=== PATIENT | male | born 1965 | race Hispanic/Latino ===

== ENCOUNTER → 2017-10-08 | Outpatient (CLI) | payer OTHER ==
[~2017-10-08] MED LIST: AMLODIPINE BESYL5 MG PO; BENADRYL; CIPRO500 MG PO; DEXAMETHASONE2 MG PO; FLOMAX0.4 MG PO; GLIMEPIRIDE2 MG PO; LEVAQUIN500 MG PO; LEVOFLOXACIN500 MG PO; METFORMIN HCL500 MG PO; NORCO 7.5-3251 EACH PO; VASOTEC10 MG PO; ZYRTEC
--- NOTE | 2017-10-09 09:11 | Diagnostic Imaging Report ---
History: Low back pain Comparison studies: CT lumbar spine 05/18/2017 Technique: Sagittal, coronal and axial T2 , sagittal T1 and IR, axial spin density oblique. Intravenous contrast: None Findings: Number of lumbar vertebral bodies:5 Alignment: Straightening of the normal lordosis.No scoliosis. Soft tissues: No T2 hyperintense inflammatory changes. Paraspinal muscles: No signal abnormalities. No atrophy. Lower thoracic cord:Normal in signal and morphology. The tip of the conus is at L1 inferior end. Cauda equina: Elongated lipoma of the filum terminale extending from L2 mid level to the sacrum. Vertebrae: Normal in height and signal intensity. No compression fractures, infection or neoplasm. Degenerative changes: L1-L2: Disc degeneration with loss of T2 signal. Patent canal and foramina. L2-L3: No abnormalities. L3-L4: Disc degeneration with loss of T2 signal. Mild diffuse disc bulge, mild facet hypertrophy and epidural lipomatosis results in moderate effacement of the thecal sac and mild bony canal stenosis. Patent foramina. L4-L5: Disc degeneration with loss of T2 signal mild diffuse disc bulge, mild facet hypertrophy, ligamentum flavum thickening thickening and epidural lipomatosis results in mild canal stenosis and mild bilateral foraminal narrowing. L5-S1: Asymmetric right disc bulge, mild facet hypertrophy and epidural lipomatosis results in mild canal stenosis, moderate right and mild left foraminal narrowing. Trace of fluid at the bilateral facet joints with millimeter posteriorly projecting 4 mm synovial cyst arising from the right. Additional findings: None IMPRESSION: No acute lumbar abnormality. Moderate thecal sac effacement from L3 through S1 secondary to epidural lipomatosis. Mild bony canal stenosis from L3 through S1 secondary to mild degenerative changes. Moderate right foraminal narrowing at L5-S1 secondary to asymmetric right. Mild foraminal narrowing at L4-L5. Mild facet hypertrophy the lower lumbar spine with synovitis changes at L5-S1. Lipoma of the filum terminale with normal location of the conus medullaris. Signed by: DR Hardeep Mathis M.D. on 10/09/2017 9:07 AM
--- NOTE | 2017-10-09 09:40 | Diagnostic Imaging Report ---
History: C-spine surgery 4 months ago, neck pain Comparison studies: X-ray of the cervical spine 05/20/2017. MRI of the cervical spine 05/19/2017 Technique: Sagittal T1, T2 and IR, axial T2 and axial gradient echo Intravenous contrast: None Findings: Alignment: Straightening of the cervical spinal lordosis, with mild reversal at C3-4 No scoliosis. Cervicomedullary junction: Mild degenerative changes of the atlantoaxial joint. Patent foramen magnum. Soft tissues: No T2 hyperintense inflammatory changes at the paraspinal region. Prominent bilateral palatine tonsils partially visualized. Spinal cord: Increased T2 signal and C3-4 with flattening of the cord and loss of volume. Surgical changes: anterior fusion and intervertebral spacer at C3-5, without evidence of failure. Vertebrae: Mild bone marrow edema at C3-4 left lateral endplates, remaining bone marrow signal is normal. No fractures, infection or neoplasm. Degenerative changes: C2-C3: Disc degeneration with loss of T2 signal. Left central disc osteophyte complex, left uncinate process hypertrophy and facet hypertrophy results in mild canal stenosis and moderate left foraminal narrowing, stable. C3-C4: Obliterated intervertebral disc with intervertebral spacer. Asymmetric left disc osteophyte complex, uncinate process hypertrophy more prominent left results in moderate to severe canal stenosis, obliteration of the left subarticular recesses, moderate right and severe left foraminal narrowing. Improvement of the central canal stenosis with removal of the right central posterior projecting osteophyte. C4-C5: Disc degeneration with loss of T2 signal and decreased intervertebral space. Asymmetric left disc osteophyte complex, uncinate process hypertrophy and ligamentum flavum and bilateral facet hypertrophy results in moderate canal stenosis, moderate bilateral foraminal narrowing C5-C6: Disc degeneration with loss of T2 signal. Bilateral uncinate process hypertrophy results in mild canal stenosis and mild bilateral foraminal narrowing C6-C7: Asymmetric left disc osteophyte complex and left uncinate process hypertrophy results in no significant canal stenosis and moderate left foraminal narrowing C7-T1: Left uncinate process hypertrophy results in mild left foraminal narrowing. IMPRESSION: 1. Anterior fusion with intervertebral spacer at C3-4 with mild improvement of the severe canal stenosis. 2. Moderate to severe canal stenosis with nonvisualization of the posteriorly projecting right central osteophyte at C3-4, improved from previous examination. 3. 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 Other stable degenerative changes compared to the previous examination. Signed by: DR Hardeep Mathis M.D. on 10/09/2017 9:37 AM
== END ==
LOC: MRI 14:15
PROVIDERS: ATTEND Internal Medicine
DX: M48.061 Spinal stenosis, lumbar region without neurogenic claudication (principal)
CPT/HCPCS: 72141; 72148

== ENCOUNTER 2017-10-11 15:14 | Inpatient (IN) | payer OTHER ==
[~2017-10-11] VITALS: Ht 180.3 cm; Wt 120.7 kg
[~2017-10-11 15:14] MED LIST changes: -AMLODIPINE BESYL5 MG PO; -LEVOFLOXACIN500 MG PO
--- OUTSIDE RECORDS SUMMARY | 2017-10-11 15:16 | XMS REPORT ---
Author Author [facility] Address Unknown Phone Unavailable Care Team Providers Care Epic Cadence Analyst Name Role Phone LACHO NICA Unavailable Unavailable KHARI FISHER Unavailable Unavailable SB MERA Unavailable Unavailable SWEET, LAIRD Unavailable Unavailable Problems This patient has no known problems. Allergies, Adverse Reactions, Alerts This patient has no known allergies or adverse reactions. Medications This patient has no known medications. Encounters Start Date/Time End Date/Time Encounter Type Admission Type Attending [facility] Care Department Encounter ID 2017-11-10 00:00:00 2017-11-10 00:00:00 Outpatient [facility] [id number] 2017-08-21 00:00:00 2017-08-21 00:00:00 Outpatient [facility] [id number] 2017-08-18 00:00:00 2017-08-18 00:00:00 Outpatient [facility] [id number] 2017-07-18 00:00:00 2017-07-18 00:00:00 Outpatient [facility] [id number] 2017-07-14 14:04:32 2017-07-14 14:04:32 Outpatient [facility] [id number] 2017-07-14 12:45:22 2017-07-14 12:45:22 Outpatient [facility] [id number] 2017-06-05 00:00:00 2017-06-05 00:00:00 Outpatient [facility] [id number] 2017-02-10 07:35:14 2017-02-10 07:35:14 Outpatient [facility] [id number] 2017-01-30 14:47:22 2017-01-30 14:47:22 Outpatient [facility] [id number] 2017-01-30 00:00:00 2017-01-30 00:00:00 Outpatient [facility] [id number] 2016-10-25 06:53:00 2016-10-25 06:53:00 Outpatient [facility] [id number] 2016-10-22 11:32:18 2016-10-22 11:32:18 Outpatient [facility] [id number] 2016-09-25 13:19:11 2016-09-25 13:19:11 Outpatient [facility] [id number] Results Test Description Test Time Test Comments Text Results Atomic Results Result Comments MRI SPINE LUMBAR WO [place] [address] Patient Name: LATASHA DENG MR #: [id number] : 1965 Age/Sex: 52/M Req #: [id number] Adm Physician: Ordered by: NICA MONK MD Report #: [id number] Location: MRI Room/Bed: Procedure: [id number] MRI/MRI SPINE LUMBAR WO Exam Date: Exam Time: REPORT STATUS: Signed History: Low back pain Comparison studies: CT lumbar spine 05/18/2017 Technique: Sagittal, coronal and axial T2 , sagittal T1 and IR, axial spin density oblique. Intravenous contrast: None Findings: Number of lumbar vertebral bodies :5 Alignment: Straightening of the normal lordosis.No scoliosis. Soft tissues: No T2 hyperintense inflammatory changes. Paraspinal muscles: No signal abnormalities. No atrophy. Lower thoracic cord:Normal in signal and morphology. The tip of the conus is at L1 inferior end. Cauda equina: Elongated lipoma of the filum terminale extending from L2 mid level to the sacrum. Vertebrae: Normal in height and signal intensity. No compression fractures, infection or neoplasm. Degenerative changes: L1 -L2: Disc degeneration with loss of T2 signal. Patent canal and foramina. L2-L3: No abnormalities. L3-L4: Disc degeneration with loss of T2 signal. Mild diffuse disc bulge, mild facet hypertrophy and epidural lipomatosis results in moderate effacement of the thecal sac and mild bony canal stenosis. Patent foramina. L4-L5: Disc degeneration with loss of T2 signal mild diffuse disc bulge, mild facet hypertrophy, ligamentum flavum thickening thickening and epidural lipomatosis results in mild canal stenosis and mild bilateral foraminal narrowing. L5-S1: Asymmetric right disc bulge, mild facet hypertrophy and epidural lipomatosis results in mild canal stenosis, moderate right and mild left foraminal narrowing. Trace of fluid at the bilateral facet joints with millimeter posteriorly projecting 4 mm synovial cyst arising from the right. Additional findings: None IMPRESSION: No acute lumbar abnormality. Moderate thecal sac effacement from L3 through S1 secondary to epidural lipomatosis. Mild bony canal stenosis from L3 through S1 secondary to mild degenerative changes. Moderate right foraminal narrowing at L5-S1 secondary to asymmetric right. Mild foraminal narrowing at L4-L5. Mild facet hypertrophy the lower lumbar spine with synovitis changes at L5-S1. Lipoma of the filum terminale with normal location of the conus medullaris. Signed by: DR Aquilino Mathis M.D. on 10/09/2017 9:07 AM Dictated By: AQUILINO MATHIS MD 6 Transcribed By: JENNIFER on 10/09/17906 COPY TO: NICA MONK MD MRI SPINE CERVICAL WO [place] [address] Patient Name: LATASHA DENG MR #: [id number] : 1965 Age/Sex: 52/M Req #: [id number] Adm Physician: Ordered by: NICA MONK MD Report #: [id number] Location: MRI Room/Bed: Procedure: [id number] MRI/MRI SPINE CERVICAL WO Exam Date: Exam Time: REPORT STATUS: Signed History: C-spine surgery 4 months ago, neck pain Comparison studies: X-ray of the cervical spine 2016. MRI of the cervical spine 05/19/2017 Technique: Sagittal T1, T2 and IR, axial T2 and axial gradient echo Intravenous contrast: None Findings: Alignment: Straightening of the cervical spinal lordosis, with mild reversal at C3-4 No scoliosis. Cervicomedullary junction: Mild degenerative changes of the atlantoaxial joint. Patent foramen magnum. Soft tissues: No T2 hyperintense inflammatory changes at the paraspinal region. Prominent bilateral palatine tonsils partially visualized. Spinal cord: Increased T2 signal and C3-4 with flattening of the cord and loss of volume. Surgical changes: anterior fusion and intervertebral spacer at C3-5, without evidence of failure. Vertebrae: Mild bone marrow edema at C3-4 left lateral endplates, remaining bone marrow signal is normal. No fractures, infection or neoplasm. Degenerative changes: C2-C3: Disc degeneration with loss of T2 signal. Left central disc osteophyte complex, left uncinate process hypertrophy and facet hypertrophy results in mild canal stenosis and moderate left foraminal narrowing, stable. C3-C4: Obliterated intervertebral disc with intervertebral spacer. Asymmetric left disc osteophyte complex, uncinate process hypertrophy more prominent left results in moderate to severe canal stenosis, obliteration of the left subarticular recesses, moderate right and severe left foraminal narrowing. Improvement of the central canal stenosis with removal of the right central posterior projecting osteophyte. C4-C5: Disc degeneration with loss of T2 signal and decreased intervertebral space. Asymmetric left disc osteophyte complex, uncinate process hypertrophy and ligamentum flavum and bilateral facet hypertrophy results in moderate canal stenosis, moderate bilateral foraminal narrowing C5-C6: Disc degeneration with loss of T2 signal. Bilateral uncinate process hypertrophy results in mild canal stenosis and mild bilateral foraminal narrowing C6-C7: Asymmetric left disc osteophyte complex and left uncinate process hypertrophy results in no significant canal stenosis and moderate left foraminal narrowing C7-T1: Left uncinate process hypertrophy results in mild left foraminal narrowing. IMPRESSION: 1. Anterior fusion with intervertebral spacer at C3-4 with mild improvement of the severe canal stenosis. 2. Moderate to severe canal stenosis with nonvisualization of the posteriorly projecting right central osteophyte at C3-4, improved from previous examination. 3. 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 Other stable degenerative changes compared to the previous examination. Signed by: DR Aquilino Mathis M.D. on 10/09/2017 9:37 AM Dictated By: AQUILINO KOTHARI MD 6 Transcribed By : JENNIFER on 10/09/17936 COPY TO: NICA MONK MD SPINE CERVICAL AP LAT FLEX EXT [place] [address] Patient Name: LATASHA DENG MR #: [id number] : 1965 Age/Sex: 52/M Req #: [id number] Adm Physician: Ordered by: KHARI FISHER MD Report #: [id number] Location: [facility] Room/Bed: Procedure: [id number] DX/SPINE CERVICAL AP LAT FLEX EXT Exam Date: 06/12/17 Exam Time: 0910 REPORT STATUS: Signed PROCEDURE : C-SPINE AP AND LAT WITH FLEX AND EXT COMPARISON: [facility], DX, C-SPINE 2 VIEWS AP T LATERAL, 05/20/2017, 5:06. [facility], MR, MRI SPINE CERVICAL WO, 05/19/2017, 0:56. INDICATIONS : CERVICAL FUSION FINDINGS: The cervical spine is visualized in the lateral view from the skull base to C6. Status post fusion of C3-C4 with intervertebral disc spacer. No significant interval bony fusion is noted. No change in alignment in flexion and extension views. Vertebral body heights are preserved. Degenerative disc changes at C4-C5. CONCLUSION: Status post anterior fusion C3-C4 with no significant interval bony fusion. No change in alignment in flexion and extension views. To Sandoval M.D. Dictated by: To Sandoval M.D. on 06/12/2017 at 18:55 Electronically approved by: To Sandoval M.D. on 2016 at 18:55 Dictated By: TO SANDOVAL MD 54 Transcribed By: MEDINA on 1854 COPY TO: KHARI FISHER MD C-SPINE 2 VIEWS AP LATERAL [place] [address] Patient Name: LATASHA DENG MR #: [id number] : 1965 Age/Sex: 52/M Req #: [id number] Adm Physician: SB MERA MD Ordered by: KHARI FISHER MD Report #: [id number] Location: MED/SURG Room/Bed: [facility] Procedure: [id number] DX/C-SPINE 2 VIEWS AP LATERAL Exam Date: 05/20/17 Exam Time: 0515 REPORT STATUS: Signed Exam: AP and lateral views of the cervical spine May at 0506 hours Indication status post surgery Comparison MRI of the cervical spine July 19, 2017 Findings: See impression Impression: Expected postsurgical changes with anterior cervical spine hardware at C3/4. Normal alignment. Prevertebral soft tissue swelling and air consistent with recent surgery. Signed by: Dr. Asif Price M.D. on 05/20/2017 6:30 AM Dictated By: ASIF PRICE MD 0630 Transcribed By: JENNIFER ziegler 05/20/17629 COPY TO: KHARI FISHER MD CHEST SINGLE (PORTABLE) [place] [address] Patient Name: LATASHA EDNG MR #: [id number] : 1965 Age/Sex: 52/M Req #: [id number] Adm Physician: SB MERA MD Ordered by: REZA FINLEY MD Report #: [id number] Location: MED/SURG Room/Bed: [facility] Procedure: [id number] DX/CHEST SINGLE (PORTABLE) Exam Date: 05/19/17 Exam Time: 0342 REPORT STATUS: Signed EXAMINATION: CHEST SINGLE (PORTABLE) INDICATION: Presurgical assessment. COMPARISON: 04/29/2017 FINDINGS: TUBES and LINES: None. LUNGS: Lungs are not well inflated. Lungs are clear. There is no evidence of pneumonia or pulmonary edema. PLEURA: No pleural effusion or pneumothorax. HEART AND MEDIASTINUM: The cardiomediastinal silhouette is unremarkable. Mild widening of the upper mediastinum due to suboptimal inspiratory effort. BONES AND SOFT TISSUES: No acute osseous lesion. Soft tissues are unremarkable. UPPER ABDOMEN: No free air under the diaphragm. IMPRESSION: No acute thoracic abnormality. Signed by: Dr. Kasi Johnson M.D. on 05/19/2017 5:38 AM Dictated By: KASI IQBAL MD 7 Transcribed By: JENNIFER on 05/19/17537 COPY TO: REZA FINLEY MD MRI BRAIN WO [place] [address] Patient Name: LATASHA DENG MR #: [id number] : 1965 Age/Sex: 52/M [facility] #: [id number] Req # : [id number] Adm Physician: Ordered by: REZA FINLEY MD Report #: [id number] Location: Room/Bed: Procedure: [id number] MRI/MRI BRAIN WO Exam Date: 05/19/17 Exam Time: 0015 REPORT STATUS: Signed History: Status post fall, headache, left sided weakness and numbness. Comparison studies: CT brain from 2016. Technique: Sagittal T2; axial DWI, FLAIR, GRE, T2, T1, Coronal FLAIR. Intravenous contrast: None Findings: Scalp: Normal in signal . No masses . Bone marrow: Normal in signal intensity. Brain sulci: Appropriate for age. Ventricles: Nonspecific mild asymmetric prominence of temporal horn of right lateral ventricle . No hydrocephalus . Parenchyma : Nonspecific few, scattered supratentorial white matter T2/FLAIR punctate hyperintense foci are likely related to small vessel ischemic changes. Focal FLAIR hyperintensity in the right lateral and dorsal aspect of the medulla ( image 5, series 3), without associated restricted diffusion may represent nonspecific small vessel ischemia or demyelinating lesion. No acute hemorrhage or acute infarct. Suprasellar region: No abnormalities. Craniocervical junction: Patent foramen magnum. No Chiari malformation . Vessels: Normal flow-voids in the arteries and sinuses. IMPRESSION: 1. Mild supratentorial white matter microvascular ischemic changes. 2. Nonspecific focal FLAIR hyperintensity in the right lateral and dorsal aspect of the medulla without restricted diffusion may represent small vessel ischemia or demyelinating lesion in appropriate clinical setting. Signed by: Dr. Abbie Bryant M.D. on 05/19/2017 2:18 AM Dictated By: ABBIE BRYANT MD 7 Transcribed By: JENNIFER on 05/19/17217 COPY TO: REZA FINLEY MD MRI SPINE LUMBAR WO [place] [address] Patient Name: LATASHA DENG MR #: [id number] : 1965 Age/Sex: 52/M Req #: [id number] Adm Physician: Ordered by: REZA FINLEY MD Report #: [id number] Location: ER Room/Bed: Procedure: [id number] MRI/MRI SPINE LUMBAR WO Exam Date: 05/19/17 Exam Time: 0056 REPORT STATUS: Signed History: Status post fall, left-sided weakness and numbness. Comparison studies: CT lumbar spine from 05/18/2017. Technique: Sagittal, coronal and axial T2 , sagittal T1 and IR, axial PD and T2 FS. Intravenous contrast: None Findings: Number of lumbar vertebral bodies: 5. Alignment: Normal lordosis. No scoliosis. Soft tissues: No T2 hyperintense inflammatory changes. Paraspinal muscles: No signal abnormalities. Well-preserved. No atrophic changes Lower thoracic cord: Normal in signal and morphology. The tip of the conus is at L2 . Suboptimal evaluation due to motion artifacts. Cauda equina: Incidental fibrolipoma of the filum terminale that extends from level L2-L4. Vertebrae: No compression fractures, infection or neoplasm. Degenerative changes: L1-L2: No abnormalities L2-L3: No abnormalities L3-L4: Disc bulge in combination with thickened ligamentum flavum and bilateral mild facet arthrosis and epidural lipomatosis results in moderate canal stenosis. Mild left foraminal stenosis. L4-L5: Mild degenerative disc disease. Disc bulge in combination with bilateral facet arthrosis and thickened ligamentum flavum and epidural lipomatosis results in mild canal stenosis. Mild right foraminal stenosis. L5-S1: Mild degenerative disc disease. Asymmetric disc bulge to the right in combination with bilateral facet arthrosis and thickened ligamentum flavum effaces thecal sac without significant canal stenosis. Possible contact of right L5 nerve root by disc material. Bilateral mild foraminal stenosis. Visualized portion of bilateral sacroiliac joints: No abnormality. IMPRESSION: 1. Lumbar spondylosis from level L3-L4 to L5-S1, with moderate canal stenosis at L3-L4 and mild canal stenosis at L4-L5. 2. Multilevel foraminal stenosis, particularly mild left at L3-L4, mild right at L4-L5 and bilateral mild at L5-S1. 3. Possible contact of right L5 nerve root by asymmetric disc bulge at L5-S1. 4. Incidental fibrolipoma of the filum terminale. Signed by: Dr. Abbie Bryant M.D. on 05/19/2017 2:32 AM Dictated By: ABBIE BRYANT MD 1 Transcribed By: JENNIFER on 05/19/17231 COPY TO: REZA FINLEY MD MRI SPINE CERVICAL WO [place] [address] Patient Name: LATASHA DENG MR #: [id number] : 1965 Age/Sex: 52/M Req #: [id number] Adm Physician: Ordered by: REZA FINLEY MD Report #: [id number] Location: ER Room/Bed: Procedure: [id number] MRI/MRI SPINE CERVICAL WO Exam Date: 05/19/17 Exam Time: 0056 REPORT STATUS: Signed History: Status post fall, left-sided weakness and numbness. Comparison studies: CT cervical spine from 05/18/2017. Technique: Sagittal T1, T2 and IR, axial T2 and axial gradient echo Intravenous contrast: None Findings: Alignment: Reversal of normal cervical lordosis centered at C3-C4 mild levocurvature of the cervical spine. 2.3 mm grade 1 retrolisthesis at C4-C5. Cervicomedullary junction: No abnormalities. Patent foramen magnum. Soft tissues: No T2 hyperintense inflammatory changes. Spinal cord: Focal T2/STIR hyperintensity within the cervical cord at level C3-C4 and C4-C5 possibly represents myelomalacia of the cord due to degenerative canal stenosis. Vertebrae: Unchanged partial bony ankylosis of C5-C6 vertebral body and facets. No fractures, infection or neoplasm. Degenerative changes: C2-C3: Mild degenerative disc disease. Posterior disc osteophyte complex asymmetric to the left results in mild canal stenosis. Moderate left foraminal stenosis due to facet and uncovertebral arthrosis. C3-C4: Posterior disc osteophyte complex with superimposed 4 mm central disc protrusion results in severe canal stenosis with cord compression and myelomalacia of the cord. Moderate right and severe left foraminal stenosis due to facet and uncovertebral arthrosis. Degenerative disc disease. C4-C5 : Posterior disc osteophyte complex results in moderate canal stenosis. Degenerative disc disease. Myelomalacia of the cord at T2/STIR hyperintensity. Severe right and moderate left foraminal stenosis due to facet and uncovertebral arthrosis. C5-C6: Severe degenerative disc disease with partial bony ankylosis. Posterior disc osteophyte complex without significant canal stenosis. Bilateral mild foraminal stenosis due to facet and uncovertebral arthrosis. C6-C7: Mild degenerative disc disease. Posterior disc osteophyte complex without canal stenosis. Mild right and moderate left foraminal stenosis due to facet and uncovertebral arthrosis. C7-T1: No abnormalities. IMPRESSION: 1. Moderate to severe cervical spondylosis extends from level C2-C3 to C6-C7, with predominant findings at level C3-C4. 2. Multilevel canal stenosis, particularly severe canal stenosis at C3-C4, moderate canal stenosis at C4-C5 and mild canal stenosis at C2-C3. Myelomalacia of the cord at C3-C4 and C4-C5 and cord compression at C3-C4. 3. Multilevel foraminal stenosis, particularly moderate left at C2-C3, moderate right and severe left at C3-C4, severe right and moderate left at C4-C5, bilateral mild at C5-C6, mild right and moderate left at C6-C7. 4. Grade 1 retrolisthesis at C4-C5, with reversal of normal cervical lordosis. Signed by: Dr. Abbie Bryant M.D. on 05/19/2017 2:47 AM Dictated By: ABBIE BRYANT MD 6 Transcribed By: JENNIFER on 05/19 COPY TO: REZA FINLEY MD CT BRAIN WO [place] [address] Patient Name: LATASHA DENG MR #: [id number] : 1965 Age/Sex: 52/M Req # : [id number] Adm Physician: Ordered by: REZA FINLEY MD Report #: [id number] Location: ER Room/Bed: Procedure: [id number] CT/CT BRAIN WO Exam Date: Exam Time: REPORT STATUS: Signed EXAMINATION: Head CT without contrast. HISTORY: Status post fall, weakness left lower extremity. COMPARISON:None. TECHNIQUE: Multidetector axial images were obtained from the foramen magnum to the vertex without contrast. The images were reconstructed using brain and bone algorithms. Thin section brain images were reformatted into coronal and sagittal planes. Intravenous contrast: None IMAGE QUALITY: Acceptable. FINDINGS: Skull/scalp: No abnormality. Parenchyma: No abnormal density. No acute hemorrhage, mass or acute major vascular territorial infarct. Arteries: No density suggestive of thrombosis. Dural sinuses: No abnormal density suggestive of thrombosis. Ventricles: No hydrocephalus or displacement. Extra-axial spaces: No abnormal density. Brain volume: Normal for age. Craniocervical junction: No mass, Chiari malformation, or basilar invagination. Sella: No mass. Paranasal/mastoid sinuses: Imaged portions unremarkable. IMPRESSION: No intracranial abnormality. Signed by: Dr. Abbie Bryant M.D. on 05/18/2017 10:00 PM Dictated By: ABBIE BRYANT MD 99 Transcribed By: JENNIFER on 05/18/172199 COPY TO: REZA FINLEY MD FOOT RIGHT [place] [address] Patient Name: LATASHA DENG MR #: [id number] : 1965 Age/Sex: 52/M Req #: [id number] Adm Physician: Ordered by: REZA FINLEY MD Report #: [id number] Location: ER Room/Bed: Procedure: [id number] DX/FOOT RIGHT COMPLETE Exam Date: 05/18/17 Exam Time: 2212 REPORT STATUS: Signed FOOT RIGHT COMPLETE HISTORY: Left foot pain COMPARISON: None FINDINGS: Bones : No displaced fracture. Osseous alignment is within normal limits. Posterior calcaneal enthesophyte. Joints: The joint spaces are well- maintained. Soft tissues: The soft tissues appear unremarkable. IMPRESSION: No acute radiographic abnormality. Signed by: Dr. Kasi Johnson M.D. on 05/18/2017 10:10 PM Dictated By: KASI IQBAL MD 09 Transcribed By: JENNIFER on 05/18/172209 COPY TO: REZA FINLEY MD CT CERVICAL SPINE WO [facility] [address] [place] [address] Patient Name: LATASHA DENG MR #: [id number] : 1965 Age/Sex: 52/M Req #: [id number] Adm Physician: Ordered by: REZA IFNLEY MD Report #: [id number] Location: ER Room/Bed: Procedure: [id number] CT/CT CERVICAL SPINE WO Exam Date: 05/18/17 Exam Time: 3 REPORT STATUS: Signed History: Status post fall, complains of arm numbness. Comparison studies: None Technique: Axial images were obtained through the cervical region.. Coronal and sagittal images reconstructed from the axial data.. Intravenous contrast: None Findings: Fractures: None. Soft tissue injuries: None. Atlantoaxial articulation: Intact. Alignment: Loss of normal cervical lordosis is either positional or due to muscle spasm. Levocurvature of the cervical spine may be positional. Grade 1,1.5 mm retrolisthesis at C4- C5. Cervicomedullary junction: No abnormalities. The foramen magnum is patent. Soft tissues: No abnormalities. Vertebrae: Partial bony ankylosis of C5-C6 vertebral bodies and left facets. Incidental fusion of right first and second ribs. Posterior fusion defect at C7 and T1. No fractures, infection or neoplasm. Degenerative changes: Mild degenerative changes in the anterior atlantodental joint. C2-C3: Moderate left foraminal stenosis due to facet arthrosis. C3-C4: Posterior disc osteophyte complex results in moderate canal stenosis. Mild right and severe left foraminal stenosis due to facet and uncovertebral arthrosis. C4-C5: Posterior disc osteophyte complex results in mild canal stenosis. Moderate right and mild left foraminal stenosis due to facet and uncovertebral arthrosis. C5-C6: Severe degenerative disc disease with partial bony ankylosis. Posterior disc osteophyte complex without canal stenosis. Bilateral mild foraminal stenosis due to facet and uncovertebral arthrosis. C6 -C7: Moderate right and mild left foraminal stenosis due to facet and uncovertebral arthrosis. IMPRESSION: 1. No acute cervical spine fracture. Loss of normal cervical lordosis is either positional or due to muscle spasm. 2. Ligament, spinal cord and or vascular abnormalities cannot be excluded on the basis of this examination. 3. Cervical spondylosis as detailed above. Signed by: Dr. Abbie Bryant M.D. on 05/18/2017 10:12 PM Dictated By: ABBIE BRYANT MD 11 Transcribed By: JENNIFER on 05/18 COPY TO: REZA FINLEY MD CT LUMBAR SPINE WO [place] [address] Patient Name: LATASHA DENG MR #: [id number] : 1965 Age/Sex: 52/M Req #: [id number] Adm Physician: Ordered by: REZA FINLEY MD Report #: [id number] Location: ER Room/Bed: Procedure: [id number] CT/CT LUMBAR SPINE WO Exam Date: 05/18/17 Exam Time: 2212 REPORT STATUS: Signed History: Status post fall, left lower extremity pain. Comparison studies: None Technique: Axial images were obtained through the lumbar spine from L1-S1. Coronal and sagittal images reconstructed from the axial data. Intravenous contrast: None Findings: The usual 5 non-rib bearing lumbar vertebral bodies are present. Alignment: Normal lordosis. No scoliosis. Soft tissues: No abnormalities. Paraspinal muscles: Unremarkable. Sacroiliac joints: No degenerative changes. Vertebrae: No fractures, infection or neoplasm. Degenerative changes: L1-L2: No abnormalities. L2-L3: Bilateral facet arthrosis. No canal or foraminal stenosis. L3-L4: Disc bulge results in mild canal stenosis. Bilateral mild facet arthrosis. Bilateral mild foraminal stenosis. Mild degenerative disc disease. L4-L5 : Mild degenerative disc disease. Disc bulge in combination with thickened ligamentum flavum and bilateral facet arthrosis results in mild canal stenosis. Bilateral mild foraminal stenosis. L5-S1: Mild degenerative disc disease. Disc bulge without canal stenosis. Bilateral moderate foraminal stenosis. Bilateral mild to moderate facet arthrosis. IMPRESSION: 1. No acute lumbar spine fracture/dislocation. 2. Lumbar spondylosis extends from level L2-L3 to L5-S1 with mild canal stenosis at L3-L4 and L4-L5. 3. Multilevel foraminal stenosis, particularly bilateral mild at L3-L4, L4-L5 and bilateral moderate at L5-S1. 4. Ligament, spinal cord and or vascular abnormalities cannot be excluded on the basis of this examination. Signed by: Dr. Abbie Bryant M.D. on 2016 10:27 PM Dictated By: ABBIE BRYANT MD 26 Transcribed By: JENNIFER on 05/18/172226 COPY TO: REZA FINLEY MD [facility] ([facility]) [place] [address] Patient Name: LATASHA DENG MR #: [id number] : 1965 Age/Sex: 51/M Req #: [id number] Adm Physician: Ordered by: REZA FINLEY MD Report #: [id number] Location: ER Room/Bed: Procedure: [id number] DX/CHEST SINGLE (PORTABLE) Exam Date: 04/29/17 Exam Time: 2031 REPORT STATUS: Signed EXAM: CHEST SINGLE (PORTABLE), AP 1 view DATE: 04/29/2017 8:20 PM Time stamp on exam: 2031 hours INDICATION: Left sided chest pain COMPARISON: PA and lateral view of the chest April 12, 2017 FINDINGS: LINES/TUBES: None LUNGS: No consolidations or edema. PLEURA: No effusions or pneumothorax. HEART AND MEDIASTINUM: Normal size and contour. BONES AND SOFT TISSUES: No acute findings. IMPRESSION: No acute thoracic abnormality. Signed by: Dr. Asif Price M.D. on 04/29/2017 9:49 PM Dictated By: ASIF PRICE MD 48 Transcribed By: JENNIFER on 04/29/172148 COPY TO: REZA FINLEY MD
[2017-10-11] MEDS ORDERED: ONDANSETRON HCL INJ 2 MG/ML VIAL IV STA (15:42)
[2017-10-11] MEDS ORDERED: SODIUM CHLORIDE 0.9% 1000ML 1,000 ML IV STA (15:42)
[2017-10-11] MEDS ORDERED: MORPHINE SULFATE 2 MG/ML SYR IV ONE (16:15)
[2017-10-11 16:51] LABS: KETONES,URINE NEGATIVE (NEGATIVE); LEUKOCYTE ESTERASE ,URINE 2+ (NEGATIVE); URINE UROBILINOGEN 1 mg/dL (0.2 - 1)
[2017-10-11 16:53] LABS: BILIRUBIN,URINE 1+ (NEGATIVE); CLARITY,URINE HAZY (CLEAR); NITRITE,URINE POSITIVE (NEGATIVE); PROTEIN,URINE DIPSTICK TRACE (NEGATIVE)
[2017-10-11 16:54] LABS: COLOR,URINE STRAW (YELLOW)
--- NOTE | 2017-10-11 17:03 | Diagnostic Imaging Report ---
EXAM: CT Abdomen and Pelvis WITHOUT contrast INDICATION: Abdominal pain COMPARISON: None. TECHNIQUE: Abdomen and pelvis were scanned utilizing a multidetector helical scanner from the lung base to the pubic symphysis. Coronal and sagittal reformations were obtained. The lack of intravenous contrast limits the evaluation of the solid organs, vasculature, and possible lymphadenopathy. Protocol: General survey without contrast IV CONTRAST: No intravenous contrast was administered as per physician request. ORAL CONTRAST: None. COMPLICATIONS: None. RADIATION DOSE: Total Exam DLP: 787.9 mGy*cm. CTDIvol has been reviewed. It is below the limits set by the Radiation Protocol Committee (RPC). FINDINGS: LINES: None. Lower thorax: No parenchymal abnormality. No pneumothorax. No pleural effusion. Liver: No focal mass. No hepatomegaly. Normal parenchyma. Gallbladder: No gallstones. No gallbladder distention. Biliary tree: No intrahepatic duct dilation. No extrahepatic duct dilation. Spleen: No splenomegaly. No focal mass. Pancreas: No focal mass. Normal pancreatic duct. No peripancreatic inflammatory changes. Kidneys: No obstructing calculi. No hydronephrosis. No cysts. No perinephric soft tissue inflammatory changes. Punctate calcification is present in the inferior pole the left kidney. Adrenal glands: No adrenal nodules.. Bladder: Normal urinary bladder. Pelvic organs: Inflammatory changes are present around the prostate. No drainable fluid collection. GI: No bowel wall thickening. No air-fluid levels. The stomach and small bowel are normal. The colon is normal. Normal appendix. A moderate amount of retained feces limits intraluminal evaluation of the colon. Peritoneum/retroperitoneum: No pneumoperitoneum. No ascites. No drainable fluid collection. Multiple subcentimeter noncalcified lymph nodes are present in the retroperitoneum. Lymph nodes: No lymphadenopathy. . Vessels: No focal abnormality. . Limited evaluation. Bones: No focal abnormality. . Soft tissues: No focal abnormality. IMPRESSION: Inflammatory changes around the prostate may represent a prostatitis. No evidence of drainable fluid collection. Nonobstructing left nephrolithiasis. Signed by: Dr. Dontae Domínguez M.D. on 10/11/2017 4:59 PM
[2017-10-11 17:09] LABS: WBC,URINE (MAN) 21-50 /HPF (0-5)
[2017-10-11 17:10] LABS: BACTERIA,URINE FEW /HPF; EPITHELIAL CELLS,URINE FEW /LPF
[2017-10-11 17:24] LABS: BASOPHILS # (AUTO) 0.1 (0.0-0.1); BASOPHILS % 0.4 % (0.0-1.0); EOSINOPHILS # (AUTO) 0.1 (0.0-0.4); EOSINOPHILS % 0.4 % (0.0-6.0); HEMATOCRIT 43.3 % (38.2-49.6); LYMPHOCYTES # (AUTO) 2.1 (1.0-3.2); LYMPHOCYTES % 9.3 % (18.0-39.1); MEAN CORPUSCULAR HEMOGLOBIN 29.6 pg (28-32); MEAN CORPUSCULAR HGB CONC 34.6 g/dL (31-35); MEAN CORPUSCULAR VOLUME 85.6 fL (81-99); MONOCYTES # (AUTO) 1.5 (0.2-0.8); MONOCYTES % 6.6 % (4.4-11.3); NEUTROPHILS # (AUTO) 18.6 (2.1-6.9); NEUTROPHILS % 82.7 % (38.7-80.0); PLATELET COUNT 205 x10e3/uL (140-360); RED BLOOD COUNT 5.06 x10e6/uL (4.3-5.7)
[2017-10-11] MEDS ORDERED: SODIUM CHLORIDE FLUSH 10 ML SYR INJ PRN (17:45)
[2017-10-11 17:49] LABS: ALANINE AMINOTRANSFERASE 29 IU/L (0-55); ALBUMIN 3.8 g/dL (3.5-5.0); ALBUMIN/GLOBULIN RATIO 1.1 (0.8-2.0); ALKALINE PHOSPHATASE 78 IU/L (40-150); ANION GAP 11.6 mmol/L (8-16); BLOOD UREA NITROGEN 15 mg/dL (7-26); BUN/CREATININE RATIO 15 (6-25); CALCIUM 8.4 mg/dL (8.4-10.2); CARBON DIOXIDE 24 mmol/L (22-29); CHLORIDE 105 mmol/L (98-107); CREATININE, SERUM 1.03 mg/dL (0.72-1.25); EST GLOMERULAR FILTRATION RATE > 60 ML/MIN (60-); GLUCOSE 128 mg/dL (74-118); POTASSIUM 3.6 mmol/L (3.5-5.1); SODIUM 137 mmol/L (136-145)
[2017-10-11] MEDS: CEFTRIAXONE SOD 1 GM VIAL IV SCH (18:22)
[2017-10-11] MEDS ORDERED: DEXTROSE 50% SYRINGE 50 ML IV PRN (18:30)
[2017-10-11] MEDS: HYDROMORPHONE 2MG/ML INJ IV PRN (21:00)
[2017-10-11] MEDS: ONDANSETRON HCL INJ 2 MG/ML VIAL IV PRN (21:00)
[2017-10-11] MEDS: INSULIN LISPRO 100 UNIT/1 ML 3ML VIAL SQ SCH (21:28)
[2017-10-12] MEDS: HYDROMORPHONE 2MG/ML INJ IV PRN ×5 (02:00→22:53)
[2017-10-12] MEDS: CEFTRIAXONE SOD 1 GM VIAL IV SCH (06:58)
[2017-10-12] MEDS: INSULIN LISPRO 100 UNIT/1 ML 3ML VIAL SQ SCH ×4 (08:30→21:00)
[2017-10-12] MEDS ORDERED: AMLODIPINE BESYL5 MG PO (09:22)
[2017-10-12] MEDS ORDERED: LACTULOSE SYRUP 20 GM/30 ML UDC PO PRN (09:30)
[2017-10-12] MEDS ORDERED: AMLODIPINE BESYLATE 5 MG TAB PO SCH (10:00)
[2017-10-12] MEDS ORDERED: LACTULOSE SYRUP 20 GM/30 ML UDC PO ONE (10:00)
[2017-10-12] MEDS: ENALAPRIL MALEATE 10 MG TAB PO SCH (10:06)
[2017-10-12] MEDS: GLIMEPIRIDE 2 MG TAB PO SCH (10:06)
[2017-10-12] MEDS ORDERED: ENALAPRIL MALEATE 10 MG TAB ONE (10:08)
--- NOTE | 2017-10-12 11:55 | History and Physical ---
CHIEF COMPLAINT: Dysuria, frequency, and chills. HISTORY OF PRESENT ILLNESS: A 52-year-old male patient with history of prostatitis in the past in 2016 and 2017. He was hospitalized, developed dysuria, frequency, pain, and painful urination so he came to the emergency room. Patient's urine analysis is abnormal. Urine, wbc's 21 to 50, rbc's 6 to 10, and bacteria present. Patient was also having urinary retention so he had a Ambriz catheter placed. He still has pain with catheter. He is being treated for acute prostatitis. Patient also complains of retrograde ejaculation. He is on Flomax twice daily. PAST MEDICAL HISTORY: Degenerative joint disease, chronic recurrent prostatitis, and BPH. PERSONAL HISTORY: He smokes 3 to 4 cigarettes daily since teenage years. Social drinking only. REVIEW OF SYSTEMS: Complains of empty ejaculation. His erection is normal. PHYSICAL EXAMINATION VITAL SIGNS: Blood pressure 119/70, pulse 72. HEENT: Normal. NECK: No JVD. LUNGS: Clear. CVS: S1 and S2 normal. ABDOMEN: Soft. Bowel sounds normal. EXTREMITIES: Lower extremities with no edema. Patient has a Ambriz catheter. IRRIGATION INSTALLATION SPECIALIST: Normal. ASSESSMENT: Acute prostatitis with urinary retention. PLAN: Keep on IV antibiotics and urology consultation. Retrograde ejaculation secondary to Flomax, patient is currently on twice daily. Urine culture and sensitivity. Job#: [id number] LIBRADO
[2017-10-12] MEDS: ONDANSETRON HCL INJ 2 MG/ML VIAL IV PRN ×2 (12:37→22:54)
[2017-10-12 13:16] LABS: BASOPHILS # (AUTO) 0.1 (0.0-0.1); BASOPHILS % 0.4 % (0.0-1.0); EOSINOPHILS # (AUTO) 0.3 (0.0-0.4); EOSINOPHILS % 1.6 % (0.0-6.0); HEMATOCRIT 41.4 % (38.2-49.6); HEMOGLOBIN 13.8 g/dL (14.0-18.0); LYMPHOCYTES # (AUTO) 1.9 (1.0-3.2); LYMPHOCYTES % 10.8 % (18.0-39.1); MEAN CORPUSCULAR HEMOGLOBIN 29.1 pg (28-32); MEAN CORPUSCULAR HGB CONC 33.3 g/dL (31-35); MEAN CORPUSCULAR VOLUME 87.3 fL (81-99); MONOCYTES # (AUTO) 1.3 (0.2-0.8); MONOCYTES % 7.1 % (4.4-11.3); NEUTROPHILS % 79.5 % (38.7-80.0); PLATELET COUNT 193 x10e3/uL (140-360); RED BLOOD COUNT 4.74 x10e6/uL (4.3-5.7); RED CELL DISTRIBUTION WIDTH 12.3 % (11.7-14.4)
[2017-10-12 13:30] LABS: ALANINE AMINOTRANSFERASE 22 IU/L (0-55); ALBUMIN 3.4 g/dL (3.5-5.0); ALKALINE PHOSPHATASE 80 IU/L (40-150); ANION GAP 11.8 mmol/L (8-16); BLOOD UREA NITROGEN 13 mg/dL (7-26); BUN/CREATININE RATIO 13 (6-25); CALCIUM 8.3 mg/dL (8.4-10.2); CARBON DIOXIDE 24 mmol/L (22-29); CHLORIDE 106 mmol/L (98-107); CREATININE, SERUM 0.98 mg/dL (0.72-1.25); EST GLOMERULAR FILTRATION RATE > 60 ML/MIN (60-); GLUCOSE 119 mg/dL (74-118); POTASSIUM 3.8 mmol/L (3.5-5.1); SODIUM 138 mmol/L (136-145)
[2017-10-12 16:31] VITALS: BP 123/62
[2017-10-12 16:41] VITALS: BP 123/62
[2017-10-12 16:45] VITALS: BP 123/62
[2017-10-12] MEDS: METFORMIN HCL 500 MG TAB PO SCH (17:57)
[2017-10-12] MEDS: AMLODIPINE BESYLATE 5 MG TAB PO SCH (17:57)
[2017-10-12] MEDS: CEFTRIAXONE SOD 2 GM VIAL IV SCH (17:57)
[2017-10-12] MEDS: TAMSULOSIN HCL 0.4 MG CAP PO SCH (21:00)
[2017-10-13] MEDS: ACETAMINOPHEN 325 MG TAB PO PRN ×2 (00:03→08:00)
[2017-10-13] MEDS: INSULIN LISPRO 100 UNIT/1 ML 3ML VIAL SQ SCH ×4 (07:30→21:05)
[2017-10-13 08:00] VITALS: BP 123/62
[2017-10-13] MEDS: METFORMIN HCL 500 MG TAB PO SCH ×2 (08:00→17:00)
[2017-10-13 08:28] VITALS: BP 114/61
[2017-10-13] MEDS ORDERED: GLIMEPIRIDE 2 MG TAB PO SCH (09:00)
[2017-10-13] MEDS ORDERED: AMLODIPINE BESYLATE 5 MG TAB PO SCH (09:00)
[2017-10-13] MEDS ORDERED: ENALAPRIL MALEATE 10 MG TAB PO SCH (09:00)
[2017-10-13] MEDS: AMLODIPINE BESYLATE 5 MG TAB PO SCH (09:00)
[2017-10-13] MEDS: ENALAPRIL MALEATE 10 MG TAB PO SCH (09:00)
[2017-10-13] MEDS: GLIMEPIRIDE 2 MG TAB PO SCH (09:00)
[2017-10-13] MEDS: CEFTRIAXONE SOD 2 GM VIAL IV SCH (09:00)
[2017-10-13] MEDS ORDERED: LACTULOSE SYRUP 20 GM/30 ML UDC PO PRN (09:30)
[2017-10-13 12:13] VITALS: BP 106/70
--- NOTE | 2017-10-13 12:35 | Consultation ---
DATE OF CONSULTATION: October 13, 2017 ATTENDING PHYSICIAN: Dr. Alvarado REASON FOR CONSULTATION: Prostatitis. Thank you, Dr. Alvarado, for asking me to see this patient. HISTORY: The patient is a 52-year-old man referred for prostatitis. He presented to the emergency department on 10/11/2017 with progressive painful urination, low back pain, fever and chills. He denies hematuria, penile urethral discharge, nausea and vomiting. He had similar symptoms in December 2016. Urine culture at that time grew . PAST MEDICAL HISTORY: Hypertension, BPH. PAST SURGICAL HISTORY: Cervical laminectomy. ALLERGIES: TRAMADOL CAUSED ITCHING. MEDICATIONS: The current antibiotic is ceftriaxone 2 grams IV piggyback q.24 h. IMMUNIZATIONS: He received the influenza vaccination prior to admission. FAMILY HISTORY: Noncontributory. SOCIAL HISTORY: He smokes cigarettes, although he claims to have cut down. REVIEW OF SYSTEMS: As per history of present illness. The patient feels better since admission and management. Still has some low-grade fever and dysuria. The lower back pain is subsiding. There is no cough, shortness of breath, nausea, vomiting, or diarrhea. PHYSICAL EXAMINATION GENERAL: No acute distress. VITAL SIGNS: T-max 100.4, pulse 100, respiratory rate 18, blood pressure 140/61. Weight 250 pounds. HEENT: Normocephalic. There is no icterus or injection of conjunctivae. There is no ear or nasal discharge. Moist oral mucosa. No pharyngeal erythema. NECK: Supple. No lymphadenopathy. LUNGS: Clear to auscultation bilaterally. HEART: Normal S1 and S2, regular. ABDOMEN: Soft. There is no costovertebral angle tenderness. EXTREMITIES: There is no edema, clubbing or cyanosis. Dorsalis pedis and posterior tibial pulses are palpable. SKIN: No acute erythema. CATERING COORDINATOR: Awake, alert and oriented to person, place and time. There is decreased sensation on monofilament examination of the feet. The vibration sensation is normal. LABORATORY DIAGNOSTICS: 10/12/2017: WBC 17,640 down from 22,520 on admission. Hemoglobin 13.8, platelets 193,000. Neutrophils 79.5, lymphocytes 10.8, monocytes 7.1, eosinophils 1.6, basophils 0.4. BUN 13, creatinine 0.98, blood glucose 114. Urinalysis was abnormal. Urine culture is pending. Blood culture no growth so far. Urine culture also no growth. CT scan of the abdomen and pelvis showed inflammatory changes around the prostate. IMPRESSION 1. Acute prostatitis present on admission. 2. Urinary tract infection with sepsis, present on admission. 3. Nephrolithiasis. 4. Diabetes mellitus, type 2, controlled. 5. Benign prostatic hyperplasia. 6. Tobacco use disorder. PLAN 1. Removal of Ambriz catheter. 2. I agree with current antibiotics. 3. Smoking cessation counseling has been provided to the patient. Patient does not need nicotine replacement therapy. Job#: [id number]
[2017-10-13] MEDS: ONDANSETRON HCL INJ 2 MG/ML VIAL IV PRN (15:48)
[2017-10-13] MEDS: HYDROMORPHONE 2MG/ML INJ IV PRN ×2 (15:48→21:00)
[2017-10-13 16:21] VITALS: BP 120/79
[2017-10-13] MEDS ORDERED: CEFTRIAXONE SOD 1 GM VIAL IV SCH (18:00)
[2017-10-13 20:00] VITALS: BP 130/75
[2017-10-13] MEDS: TAMSULOSIN HCL 0.4 MG CAP PO SCH (20:59)
[2017-10-13] MEDS ORDERED: TAMSULOSIN HCL 0.4 MG CAP PO SCH (21:00)
[2017-10-14] VITALS: BP 121/68
[2017-10-14 04:00] VITALS: BP 119/72
[2017-10-14] MEDS: INSULIN LISPRO 100 UNIT/1 ML 3ML VIAL SQ SCH ×4 (07:30→20:38)
[2017-10-14 08:20] VITALS: BP 121/75
[2017-10-14] MEDS: AMLODIPINE BESYLATE 5 MG TAB PO SCH (09:38)
[2017-10-14] MEDS: ENALAPRIL MALEATE 10 MG TAB PO SCH (09:38)
[2017-10-14] MEDS: METFORMIN HCL 500 MG TAB PO SCH ×2 (09:38→16:41)
[2017-10-14] MEDS: GLIMEPIRIDE 2 MG TAB PO SCH (09:38)
[2017-10-14] MEDS: CEFTRIAXONE SOD 2 GM VIAL IV SCH (09:38)
[2017-10-14] MEDS ORDERED: LEVOFLOXACIN500 MG PO (10:24)
[2017-10-14 11:48] VITALS: BP 111/80
[2017-10-14 16:30] VITALS: BP 117/85
[2017-10-14 19:44] VITALS: BP 127/78
[2017-10-14] MEDS: HYDROMORPHONE 2MG/ML INJ IV PRN ×2 (20:10→23:42)
[2017-10-15 00:58] VITALS: BP 114/84
[2017-10-15] MEDS: HYDROMORPHONE 2MG/ML INJ IV PRN (05:59)
[2017-10-15 06:02] LABS: BASOPHILS # (AUTO) 0.1 (0.0-0.1); BASOPHILS % 0.9 % (0.0-1.0); EOSINOPHILS # (AUTO) 0.6 (0.0-0.4); EOSINOPHILS % 7.4 % (0.0-6.0); HEMATOCRIT 42.7 % (38.2-49.6); LYMPHOCYTES # (AUTO) 2.4 (1.0-3.2); LYMPHOCYTES % 32.4 % (18.0-39.1); MEAN CORPUSCULAR HEMOGLOBIN 28.7 pg (28-32); MEAN CORPUSCULAR HGB CONC 32.8 g/dL (31-35); MEAN CORPUSCULAR VOLUME 87.5 fL (81-99); NEUTROPHILS # (AUTO) 3.4 (2.1-6.9); NEUTROPHILS % 45.5 % (38.7-80.0); PLATELET COUNT 228 x10e3/uL (140-360); RED BLOOD COUNT 4.88 x10e6/uL (4.3-5.7); RED CELL DISTRIBUTION WIDTH 11.9 % (11.7-14.4)
[2017-10-15 06:22] LABS: ANION GAP 13.2 mmol/L (8-16); BLOOD UREA NITROGEN 16 mg/dL (7-26); BUN/CREATININE RATIO 17 (6-25); CALCIUM 8.3 mg/dL (8.4-10.2); CARBON DIOXIDE 25 mmol/L (22-29); CHLORIDE 107 mmol/L (98-107); CREATININE, SERUM 0.92 mg/dL (0.72-1.25); EST GLOMERULAR FILTRATION RATE > 60 ML/MIN (60-); GLUCOSE 115 mg/dL (74-118); POTASSIUM 4.2 mmol/L (3.5-5.1); SODIUM 141 mmol/L (136-145)
[2017-10-15 06:44] VITALS: BP 126/89
[2017-10-15] MEDS: INSULIN LISPRO 100 UNIT/1 ML 3ML VIAL SQ SCH (07:30)
[2017-10-15 08:00] VITALS: BP 129/81
[2017-10-15] MEDS: GLIMEPIRIDE 2 MG TAB PO SCH (08:41)
[2017-10-15] MEDS: AMLODIPINE BESYLATE 5 MG TAB PO SCH (08:41)
[2017-10-15] MEDS: ENALAPRIL MALEATE 10 MG TAB PO SCH (08:41)
[2017-10-15] MEDS: CEFTRIAXONE SOD 2 GM VIAL IV SCH (08:41)
[2017-10-15] MEDS: METFORMIN HCL 500 MG TAB PO SCH (08:41)
[2017-10-15] MEDS ORDERED: TAMSULOSIN HCL 0.4 MG CAP PO SCH (12:00)
== END 2017-10-15 10:37 | disposition home or self-care (01) | DRG 872 ==
LOC: ER 15:14 → ERHOLD 18:13 → MED/SURG2 10-12 15:18
PROVIDERS: ADMIT Internal Medicine; ATTEND Internal Medicine
DX: A41.9 Sepsis, unspecified organism (principal); I10 Essential (primary) hypertension; E11.9 Type 2 diabetes mellitus without complications; D64.9 Anemia, unspecified; N39.0 Urinary tract infection, site not specified; N41.0 Acute prostatitis; N40.1 Benign prostatic hyperplasia with lower urinary tract symptoms; F17.210 Nicotine dependence, cigarettes, uncomplicated; R33.8 Other retention of urine; M19.90 Unspecified osteoarthritis, unspecified site; N53.14 Retrograde ejaculation; T44.6X5A Adverse effect of alpha-adrenoreceptor antagonists, initial encounter
CPT/HCPCS: 36415; 74176; 80048; 80053; 81001; 82948; 83605; 85025; 87040; 87086; 96374; 96375; 96376; 99284; J0696; J2270; J2405; J7030

== ENCOUNTER → 2018-09-11 | Outpatient (CLI) | payer OTHER ==
[~2018-09-11] MED LIST changes: +AMLODIPINE BESYL5 MG PO; +BACLOFEN10 MG PO; +LEVOFLOXACIN500 MG PO
--- NOTE | 2018-09-14 02:03 | Diagnostic Imaging Report ---
EXAMINATION: MRI of the lumbar spine without contrast HISTORY: Low back pain, left lower extremity pain with numbness and weakness COMPARISON: Lumbar spine MRI on 10/08/2017 TECHNIQUE: Sagittal T1, T2, STIR; axial T2 and proton density. FINDINGS: It is assumed that there are 5 lumbar vertebrae. Curvature/Alignment: Normal lordosis. Vertebrae: No evidence of recent fracture, infection, or neoplasm. Conus: Normal, terminating at L1-L2 Cauda equina: Again noted lipomatosis of the filum terminale. Otherwise unremarkable. Lower thoracic: Unremarkable. Paraspinal soft tissues: Unremarkable. Degenerative changes: Lower limits of normal lumbar spinal canal and superimposed degenerative changes as follows: L1-L2: Mild symmetric disc bulge without significant canal or foraminal stenoses. L2-L3: No degenerative changes. L3-L4: Mild symmetric disc bulge and facet arthrosis. Mild to moderate canal stenosis. Minimal foraminal narrowing. L4-L5: Asymmetric to right disc bulge, ligamenta flava thickening and positive processes. Eotv-yw-newcbhtp canal stenosis. Mild foraminal narrowing. L5-S1: Minimal visible, mild facet arthrosis. Moderate right and mild left foraminal stenoses. Mild canal narrowing. Improved previously seen Facet synovitis. IMPRESSION: 1. No significant interval change when compared to lumbar spine MRI 10/08/2017. 2. Lower limits of normal lumbar spinal canal is again noted. 3. Persistent mild to moderate spinal canal and mild foraminal narrowing from L3-L4 to L5-S1 as above. Signed by: Dr. Kayy Bradley M.D. on 09/14/2018 2:00 AM
--- NOTE | 2018-09-14 02:17 | Diagnostic Imaging Report ---
EXAMINATION: MRI of the cervical spine without contrast HISTORY: Neck pain radiating to the left upper extremity with numbness and weakness, prior spine surgery on November 2017. COMPARISON: Cervical spine MRI 10/08/2017 and cervical spine x-ray on 08/11/2018 TECHNIQUE: Sagittal T1, T2, STIR; axial T2, gradient echo. FINDINGS: Postoperative changes: -Decompressive laminectomy from C3 through C6 and posterior fusion with transpedicular screws from C3 to C6.. -Anterior interbody fusion at C3-C4 with grafting. Curvature: Straightening of the cervical lordosis. Mild levoscoliosis. Vertebrae: No evidence of neoplasm, infection, or fracture. Partial likely congenital fusion of the C5 and C6 vertebral bodies and posterior elements. Foramen magnum: No mass, Chiari malformation, or basilar invagination. Spinal Cord: -Mild increased T2 signal within the spinal cord/edema at C1/C2 and C2-C3 levels. 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 Tiny T2 hyperintense focus is also seen on the right posterolateral aspect of the cord at the level of the superior end plate of T1 and partially in the right posterolateral medulla oblongata. Soft Tissues: Significant prominence of the collecting tonsils for patient's age with mild narrowing of the oropharynx. Degenerative changes: C1-C2: Mild degenerative changes, no stenosis. C2-C3: Mild disc bulge, uncovertebral and facet arthrosis. Moderate spinal canal and severe left foraminal stenoses. Compression upon the exiting left C3 nerve root cannot be excluded. C3-C4: Surgical level with moderate foraminal stenoses C4-C5: Surgical level with [id number]-igptcfnn foraminal stenoses. C5-C6: Surgical level with alrr-eu-tccveqwo foraminal stenosis. C6-C7: Asymmetric the left prominent disc osteophyte, disc protrusion, uncovertebral and facet arthrosis, results in severe left foraminal stenosis with possible compression upon the left C7 nerve root. C7-T1: Mild symmetric disc bulge and facet arthrosis without significant stenoses. IMPRESSION: 1. Status post canal decompression with resolution of previously seen severe canal stenosis and cord compression from C3 to C6. 2. Persistent severe degenerative foraminal stenosis on the left at C2-C3 and C6-C7, compression upon the corresponding exiting nerve roots cannot be excluded and may explain the patient's symptoms. 3. Moderate degenerative spinal canal stenosis at C2-C3 with associated canal stenosis and increased signal within the cervical spinal cord as detail above. 4. Extensive cervical spinal cord myelomalacia from C3 to C5 as described. Signed by: Dr. Kayy Bradley M.D. on 09/14/2018 2:14 AM
== END ==
LOC: MRI 07:25
PROVIDERS: ATTEND Internal Medicine
DX: M48.061 Spinal stenosis, lumbar region without neurogenic claudication (principal); M47.12 Other spondylosis with myelopathy, cervical region
CPT/HCPCS: 72141; 72148

== ENCOUNTER 2018-10-07 15:08 | Outpatient (RCR) | payer OTHER | END 2018-10-08 | LOC: PT 15:08 | PROVIDERS: ATTEND Internal Medicine | DX: M47.12 Other spondylosis with myelopathy, cervical region (principal); M48.061 Spinal stenosis, lumbar region without neurogenic claudication; R29.898 Other symptoms and signs involving the musculoskeletal system ==

== ENCOUNTER 2018-11-04 16:00 | Outpatient (RCR) | payer OTHER | END 2018-11-05 | LOC: OT 16:00 | PROVIDERS: ATTEND Internal Medicine | DX: M47.12 Other spondylosis with myelopathy, cervical region (principal); M48.061 Spinal stenosis, lumbar region without neurogenic claudication; R29.898 Other symptoms and signs involving the musculoskeletal system; R53.1 Weakness; R27.9 Unspecified lack of coordination ==

== ENCOUNTER 2018-11-26 14:56 | Emergency (ER) | payer OTHER ==
[~2018-11-26] VITALS: Ht 180.3 cm; Wt 107.5 kg
--- OUTSIDE RECORDS SUMMARY | 2018-11-26 14:59 | XMS REPORT | Clinical Summary ---
Author Author [facility] Address Unknown Phone Unavailable Care Team Providers Care Asphalt Roller Operator Name Role Phone Bill Villa PCP Allergies Comments Active Allergy Reactions Severity Noted Date Tramadol Itching 11/23/2017 Medications End Date Status Medication Sig Dispensed Refills Start Date Active metFORMIN (GLUCOPHAGE) Take 500 mg 0 500 MG tablet by mouth 2 (two) times daily with breakfast and dinner. Active amLODIPine (NORVASC) 5 MG Take 5 mg by 0 tablet mouth daily. Active tamsulosin (FLOMAX) 0.4 Take 0.4 mg 0 mg Cp24 24 hr capsule by mouth daily. Active glimepiride (AMARYL) 1 MG Take 1 mg by 0 tablet mouth every morning before breakfast. Active amitriptyline (ELAVIL) 25 Take 25 mg by 0 MG tablet mouth nightly. Active enalapril (VASOTEC) 20 MG Take 20 mg by 0 tablet mouth daily. 12/08/2017 docusate sodium (COLACE) Take 1 20 capsule 0 100 MG capsule capsule (100 8 mg total) by mouth 2 (two) times daily for 10 days. Active Problems Problem Noted Date Left arm numbness 11/23/2017 Left arm weakness 11/23/2017 Encounters Care Team Description Date Type Specialty Michael Bo MD Raber, Michael Robert, MD Left arm numbness (Primary Dx); Left arm weakness; Cervical myelopathy (HCC); Paraparesis (HCC); Neck pain; Gait abnormality 11/23/2017 [facility] General Internal Medicine - Encounter 11/28/2017 after 11/25/2017 Social History Date Tobacco Use Types Packs/Day Years Used Current Every Day Smoker Cigarettes 1 20 Smokeless Tobacco: Never Used Tobacco Cessation: Ready to Quit: No; Counseling Given: Yes Comments: BRAY[place] SURE Alcohol Use Drinks/Week oz/Week Comments No Sex Assigned at Date Recorded Not on file Industry Job Start Date Occupation Not on file Not on file Not on file Travel End Travel History Travel Start No recent travel history available. Last Filed Vital Signs Time Taken Vital Sign Reading 11/28/2017 12:38 PM CDT Blood Pressure 116/72 11/28/2017 12:38 PM CDT Pulse 100 11/28/2017 12:38 PM CDT Temperature 37.1 C (98.7 F) 11/28/2017 12:38 PM CDT Respiratory Rate 20 11/28/2017 12:38 PM CDT Oxygen Saturation 91% - Inhaled Oxygen - Concentration - Weight - - Height - - Body Mass Index - Plan of Treatment Not on file Implants Device Identifier Shelf Expiration Date Model / Serial / Lot Implanted Type Area Manufactur er 05/21/2018 BL-1500-003 / / [id number] Bone Vivigen Matrix Frzen 10cc Bone N/A: Spine LIFENET:LI Bl-1500-003 - [id number] Cervical FENET Implanted: Qty: 1 on 11/24/2017 by Hiro Koch MD SRV 03/11/2019 [id number] / / [id number] Flseal Vhsd Full Strlprep 10ml Cement/Herbert N/A: Spine CERRATO:BIO [id number] - [id number] ler/Adhesi Cervical SCI Implanted: Qty: 2 on 11/24/2017 by Hiro Gross MD / / Scr M/L 3.5x14mm - Spine N/A: Spine J [id number] Cervical &J:DEPUY:D Implanted: Qty: 7 on 11/24/2017 by EPHiro Zamora MD / / Scr Polyaxail Inner - Spine N/A: Spine J [id number] Cervical &J:DEPUY:D Implanted: Qty: 7 on 11/24/2017 by Hiro Zamora MD [id number] / / 3.5 X 60 Mm Rods N/A: Spine Synthes Implanted: Qty: 2 on 11/24/2017 by Cervical Hiro Sandoval MD Procedures Comments Procedure Name Priority Date/Time Associated Diagnosis URINALYSIS W/ REFLEX Routine 11/27/2017 URINE CULTURE 12:37 PM CDT POCT-GLUCOSE METER Routine 11/27/2017 8:56 AM CDT CBC W/PLT COUNT & AUTO Routine 11/27/2017 DIFFERENTIAL 5:48 AM CDT BASIC METABOLIC PANEL (7) Routine 11/27/2017 5:48 AM CDT CBC W/PLT COUNT & AUTO Routine 11/27/2017 DIFFERENTIAL 5:48 AM CDT POCT-GLUCOSE METER Routine 11/26/2017 9:13 PM CDT POCT-GLUCOSE METER Routine 11/26/2017 4:49 PM CDT XR SPINE CERVICAL 2 OR 3 STAT 11/26/2017 VIEWS 2:09 PM CDT POCT-GLUCOSE METER Routine 11/26/2017 12:45 PM CDT POCT-GLUCOSE METER Routine 11/26/2017 7:52 AM CDT POCT-GLUCOSE METER Routine 11/25/2017 9:27 PM CDT TRANSFUSION SERVICE 11/25/2017 REPORT - SCAN 5:41 PM CDT POCT-GLUCOSE METER Routine 11/25/2017 4:48 PM CDT POCT-GLUCOSE METER Routine 11/25/2017 1:18 PM CDT PERIPHERAL VASCULAR 11/25/2017 REPORT - SCAN 12:54 PM CDT VENOUS DOPPLER ARM, LEFT Routine 11/25/2017 10:12 AM CDT POCT-GLUCOSE METER Routine 11/25/2017 8:07 AM CDT after 11/25/2017 Results * Urinalysis w/Microscopic + Reflex to Culture (11/27/2017 12:37 PM CDT) Color, UA Yellow [facility] Clarity, UA Clear [facility] Specific [place], UA 1.014 1.001 - 1.035 [facility] pH, UA 6.0 5.0 - 8.0 [facility] Protein, UA 10 mg/dL (A) Negative [facility] Glucose, UA 500 mg/dL (A) Negative [facility] Ketones, UA 10 mg/dL (A) Negative [facility] Bilirubin, UA Negative Negative [facility] Blood, UA Negative Negative [facility] Nitrite, UA Negative Negative [facility] Leukocytes, UA Negative Negative [facility] Urobilinogen, UA 0.2 0.2 - 1.0 mg/dL [facility] RBC, UA <1 /HPF [facility] WBC, UA 4 /HPF [facility] Squam Epithel, UA <1 /HPF [facility] Specimen Source [facility] Specimen Urine Performing Organization Address City/[facility]/Zipcode Phone Number [address] [address] [facility] * POC-Glucose meter (11/27/2017 8:56 AM CDT) Only the most recent of 9 results within the time period is included. POC-Glucose Meter 207 (H)Comment: TESTED AT 70 - 110 mg/dL [address] [address] Specimen Blood Performing Organization Address City/[facility]/Zipcode Phone Number [address] [address] [facility] * CBC with platelet count + automated diff (11/27/2017 5:48 AM CDT) WBC 11.0 (H) 3.5 - 10.5 K/L [facility] RBC 4.25 (L) 4.63 - 6.08 M/L [facility] Hemoglobin 12.1 (L) 13.7 - 17.5 GM/DL [facility] Hematocrit 37.7 (L) 40.1 - 51.0 % [facility] MCV 88.7 79.0 - 92.2 fL [facility] MCH 28.5 25.7 - 32.2 pg [facility] MCHC 32.1 (L) 32.3 - 36.5 GM/DL [facility] RDW 12.4 11.6 - 14.4 % [facility] Platelets 194 150 - 450 K/CU MM [facility] MPV 10.5 9.4 - 12.4 fL [facility] nRBC 0 0 - 0 /100 WBC [facility] % Neutros 71 % [facility] % Lymphs 17 % [facility] % Monos 10 % [facility] % Eos 2 % [facility] % Baso 0 % [facility] # Neutros 7.83 (H) 1.78 - 5.38 K/L [facility] # Lymphs 1.85 1.32 - 3.57 K/L [facility] # Monos 1.05 (H) 0.30 - 0.82 K/L [facility] # Eos 0.18 0.04 - 0.54 K/L [facility] # Baso 0.04 0.01 - 0.08 K/L [facility] Immature 1 0 - 1 % [facility] Granulocytes-Relative [facility] Specimen Blood - Arm, Left Performing Organization Address City/State/Zipcode Phone Number [facility] [address] [place] [address] [phone] * Basic Metabolic Panel (11/27/2017 5:48 AM CDT) Sodium 140 136 - 145 meq/L [facility] Potassium 4.0 3.5 - 5.1 meq/L [facility] Chloride 105 98 - 107 meq/L [facility] CO2 27 22 - 29 meq/L [facility] BUN 22 (H) 7 - 21 mg/dL [facility] Creatinine 0.81 0.57 - 1.25 mg/dL [facility] Glucose 132 (H) 70 - 105 mg/dL [facility] Calcium 8.4 8.4 - 10.2 mg/dL [facility] EGFR Comment: INSUFFICIENT CLINICAL mL/min/1.73 sq m [facility] DATA TO CALCULATE ESTIMATED [facility] GFR. Specimen Blood - Arm, Left Performing Organization Address City/[facility]/Zipcode Phone Number [place] [phone] [place] [address] [phone] * XR spine cervical 2 or 3 views (11/26/2017 2:09 PM CDT) Narrative Performed At FINAL REPORT [facility] Cervical spine two views 11/26/2017 2:26 PM CLINICAL HISTORY: Postop COMPARISON: None available IMPRESSION: Hardware and spinal alignment are satisfactory status post anterior cervical discectomy and fusion at C3-4 and posterior cervical fusion at C3-C6, with multilevel laminectomies. There is no anterior paravertebral soft tissue swelling. Signed: Monster Putnam MD Report Verified Date/Time:11/26/2017 14:27:51 Reading Location: [facility] C0[facility] Consult Reading Room Procedure Note Interface, External Ris In - 11/26/2017 2:30 PM CDT FINAL REPORT Cervical spine two views 11/26/2017 2:26 PM CLINICAL HISTORY: Postop COMPARISON: None available IMPRESSION: Hardware and spinal alignment are satisfactory status post anterior cervical discectomy and fusion at C3-4 and posterior cervical fusion at C3-C6, with multilevel laminectomies. There is no anterior paravertebral soft tissue swelling. Signed: Monster Putnam MD Report Verified Date/Time: 11/26/2017 14:27:51 Reading Location: [facility] B1 C013W Consult Reading Room Performing Organization Address City/State/Zipcode Phone Number [facility] * TRANSFUSION SERVICE REPORT - SCAN (11/25/2017 5:41 PM CDT) Narrative Performed At * PERIPHERAL VASCULAR REPORT - SCAN (11/25/2017 12:54 PM CDT) Narrative Performed At * Venous doppler arm, left (11/25/2017 10:12 AM CDT) Ejection Fraction [facility] [employer] [facility] Impressions Performed At Right Impression [facility] NOT ORDERED. [employer] CPACS Left Impression 1. There is no deep venous obstruction in the jugular, subclavian, axillary, brachial, radial or ulnar veins. 2. There is no superficial venous obstruction in the cephalic or basilic veins. Conclusions Summary Venous duplex imaging and compression of the left upper extremity was performed. The veins were adequately visualized. The left venous system was patent and compressible with no evidence of thrombus. Signature Velocities are measured in cm/s ; Diameters are measured in cm Narrative Performed At [facility] - Upper Extremities Veins [facility] Demographics [employer] CPACS Patient Name ISH DENISE, Date of Study 11/25/2017 LATASHA [id number] Visit Number [id number] Accession Number [id number] of 1965 [facility] Number [id number] Physicianber SonographBelinda Méndezeating [facility] for children and adolescentsKarena. Hiro Naik, T Physician , RPVI Procedure Type of Study: Veins: Upper Extremities Veins, VENOUS DOPPLER ARM, LEFT. Indications for Study:LUE swelling . Patient Status:Routine. Study Location:Vascular Lab. Technical Quality:Adequate visualization. Risk Factors History of Disease + +----+ + !Diagnosis!Date!Comments ! + +----+ + !History/Risk Factors:!!DM, RA, Depression, Anxiety. ! + +----+ + Procedure Note Interface, External Ris In - 11/25/2017 12:13 PM CDT [facility] - Upper Extremities Veins Demographics Patient Name ISH DENISE, Date of Study 11/25/2017 LATASHA Age 52 Visit Number [id number] Gender Male Accession Number [id number] Date of 1965 Referring Hiro Dennis Room Number 1811 Physician Jaime Regional Merchandising Manager Marybel Dukes Interpreting Leigh Naik T Physician , RPANNALISA Procedure Type of Study: Veins: Upper Extremities Veins, VENOUS DOPPLER ARM, LEFT. Indications for Study:LUE swelling . Patient Status:Routine. Study Location:Vascular Lab. Technical Quality:Adequate visualization. Risk Factors History of Disease + +----+ + !Diagnosis !Date!Comments ! + +----+ + !History/Risk Factors: ! !DM, RA, Depression, Anxiety. ! + +----+ + Impressions Right Impression NOT ORDERED. Left Impression 1. There is no deep venous obstruction in the jugular, subclavian, axillary, brachial, radial or ulnar veins. 2. There is no superficial venous obstruction in the cephalic or basilic veins. Conclusions Summary Venous duplex imaging and compression of the left upper extremity was performed. The veins were adequately visualized. The left venous system was patent and compressible with no evidence of thrombus. Signature Velocities are measured in cm/s ; Diameters are measured in cm Performing Organization Address City/State/[facility] Phone Number [facility] [employer] CPACS after 11/25/2017 Insurance Payer Benefit Subscriber ID Type Phone Address Plan / Group [facility] xxxxxxxxxx [employer] E EXCHANGE Advance Directives For more information, please contact: [facility] [address] [place] [address] Date Inactivated Comments Code Status Date Activated 11/28/2017 8:09 PM Full Code 11/24/2017 4:14 AM This code status was determined by: Patient
--- NOTE | 2018-11-26 16:00 | Diagnostic Imaging Report ---
Frontal and lateral views of the chest. HISTORY: CHEST PAIN, shortness of breath, cough COMPARISON: None available. DISCUSSION: Lungs: The lungs are well inflated. No evidence of a consolidative pneumonia or pulmonary alveolar edema. Pleura: No pleural effusion or pneumothorax. Heart and mediastinum: The cardiomediastinal silhouette appears unremarkable. Bones and soft tissues: Appear unremarkable. IMPRESSION: No acute radiographic abnormality. Signed by: Dr. Giuliano Beard D.O., M.M.M. on 11/26/2018 3:57 PM
[2018-11-26] MEDS ORDERED: ALBUTEROL/IPRATROPIUM 3 ML NEB ONE (19:44)
[2018-11-26] MEDS ORDERED: ALBUTEROL/IPRATROPIUM 3 ML NEB NEB ONE (20:15)
[2018-11-26] MEDS ORDERED: METHYLPREDNISOLONE SOD SUCC 125 MG/2ML VIAL IV ONE (20:15)
[2018-11-26] MEDS ORDERED: LEVAQUIN500 MG PO (22:20)
[2018-11-26] MEDS ORDERED: PREDNISONE20 MG PO (22:20)
[2018-11-26] MEDS ORDERED: ALBUTEROL2.5 MG/3 M INH (22:22)
[2018-11-26] MEDS ORDERED: IPRAT-ALBUT 0.5-3 ML INH (22:22)
== END 2018-11-26 23:37 | disposition home or self-care (01) ==
LOC: ER 14:56
DX: R06.00 Dyspnea, unspecified (principal); R05 Cough; J44.1 Chronic obstructive pulmonary disease with (acute) exacerbation; Z87.891 Personal history of nicotine dependence
CPT/HCPCS: 71046; 93005; 94640; 99283

== ENCOUNTER 2018-12-02 16:00 | Outpatient (RCR) | payer OTHER ==
[~2018-12-02 16:00] MED LIST changes: +ALBUTEROL2.5 MG/3 M INH; +IPRAT-ALBUT 0.5-3 ML INH; +PREDNISONE20 MG PO
== END 2018-12-06 ==
LOC: OT 16:00
PROVIDERS: ATTEND Internal Medicine
DX: M47.12 Other spondylosis with myelopathy, cervical region (principal); M48.061 Spinal stenosis, lumbar region without neurogenic claudication; R53.1 Weakness
CPT/HCPCS: 97139

== ENCOUNTER 2019-07-22 15:54 | Outpatient (RCR) | payer OTHER | END 2019-08-07 | LOC: PT 15:54 | PROVIDERS: ATTEND Neurological Surgery | DX: M51.16 Intervertebral disc disorders with radiculopathy, lumbar region (principal); M53.86 Other specified dorsopathies, lumbar region; M62.81 Muscle weakness (generalized) ==

== ENCOUNTER 2019-10-26 15:52 | Outpatient (RCR) | payer OTHER | END 2019-11-06 | LOC: PT 15:52 | PROVIDERS: ATTEND Internal Medicine | DX: M51.16 Intervertebral disc disorders with radiculopathy, lumbar region (principal); M62.81 Muscle weakness (generalized); M53.86 Other specified dorsopathies, lumbar region ==

== ENCOUNTER 2019-11-08 16:20 | Outpatient (RCR) | payer MEDICARE, OTHER ==
[2019-11-19] MEDS ORDERED: PREDNISONE20 MG PO (10:56)
[2019-11-19] MEDS ORDERED: ALBUTEROL0.63 MG/3 NEB (10:56)
[2019-11-19] MEDS ORDERED: LEVAQUIN500 MG PO (10:56)
== END 2019-12-07 ==
LOC: PT 16:20
PROVIDERS: ATTEND Internal Medicine
DX: M48.061 Spinal stenosis, lumbar region without neurogenic claudication (principal); Z98.890 Other specified postprocedural states
CPT/HCPCS: 97139

== ENCOUNTER 2019-11-19 08:48 | Emergency (ER) | payer MEDICARE, OTHER ==
[~2019-11-19] VITALS: Ht 180.3 cm; Wt 108.9 kg
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
[2019-11-19] MEDS: ALBUTEROL/IPRATROPIUM 3 ML NEB NEB ONE ×2 (10:04→10:44)
[2019-11-19] MEDS: METHYLPREDNISOLONE SOD SUCC 125 MG/2ML VIAL IV ONE (10:04)
[2019-11-19] MEDS ORDERED: ALBUTEROL/IPRATROPIUM 3 ML NEB ONE ×2 (10:11→10:36)
[2019-11-19] MEDS ORDERED: METHYLPREDNISOLONE SOD SUCC 125 MG/2ML VIAL ONE (10:11)
--- NOTE | 2019-11-19 10:29 | Diagnostic Imaging Report ---
EXAMINATION: CXR 2 VIEW - HOPD INDICATION: Shortness of breath COMPARISON: None FINDINGS: LINES/TUBES:None LUNGS:The lungs are well-inflated. No focal consolidation or pulmonary edema. PLEURA:No pleural effusion or pneumothorax. MEDIASTINUM:The cardiomediastinal silhouette appears normal in size and shape. BONES/SOFT TISSUES:No acute osseous injury. ABDOMEN:No free air under the diaphragm. IMPRESSION: No focal pneumonia or pulmonary edema. Signed by: Yamini Moreno MD on 11/19/2019 10:26 AM
[2019-11-19] MEDS ORDERED: LEVAQUIN500 MG PO (10:56)
[2019-11-19] MEDS ORDERED: ALBUTEROL0.63 MG/3 NEB (10:56)
[2019-11-19] MEDS ORDERED: PREDNISONE20 MG PO (10:56)
[2019-11-19 11:03] VITALS: BP 147/82
[2019-11-19] MEDS: CLONIDINE HCL 0.1 MG TAB PO ONE (11:40)
== END 2019-11-19 11:19 | disposition home or self-care (01) ==
LOC: FSED 08:48
DX: R06.00 Dyspnea, unspecified (principal); R05 Cough; R07.89 Other chest pain; J44.1 Chronic obstructive pulmonary disease with (acute) exacerbation; I10 Essential (primary) hypertension; E11.9 Type 2 diabetes mellitus without complications; Z87.891 Personal history of nicotine dependence
CPT/HCPCS: 71046; 80048; 80076; 82553; 83518; 84484; 85025; 87040; 87400; 93005; 99284; J2930

== ENCOUNTER 2023-01-02 08:25 | Emergency (ER) | payer MEDICARE ==
[~2023-01-02] VITALS: Ht 180.3 cm; Wt 105.2 kg
[~2023-01-02 08:25] MED LIST changes: +ALBUTEROL0.63 MG/3 NEB; +AMITRIPTYLINE H50 MG; +ASPIRIN EC81 MG PO; +ATORVASTATIN CA20 MG PO; +FINASTERIDE5 MG PO; +GABAPENTIN100 MG PO; +JARDIANCE25 MG PO; +METFORMIN500 MG/5 M PO; +METOPROLOL SUCC25 MG PO; +MONTELUKAST SOD10 MG PO; +PROAIR HFA INH8.5 GM INH; +SYMBICORT 16010.2 GM INH; +TOPROL XL25 MG PO; +TRULICITY1.5 MG/0.5 SC; +VASOTEC20 MG PO
[2023-01-02] MEDS ORDERED: KETOROLAC TROMETHAMINE 30 MG/ML VIAL IM STA (08:41)
[2023-01-02] MEDS ORDERED: HYDROCODONE/APAP 5MG-325MG TAB PO ONE (08:45)
[2023-01-02] MEDS ORDERED: ULTRAM 50MG50 MG PO (09:40)
== END 2023-01-02 09:45 | disposition home or self-care (01) ==
LOC: MERGE 08:40 → ER 08:40
DX: S83.421A Sprain of lateral collateral ligament of right knee, initial encounter (principal); W18.39XA Other fall on same level, initial encounter; Y93.01 Activity, walking, marching and hiking; Y92.89 Other specified places as the place of occurrence of the external cause; I10 Essential (primary) hypertension; E11.9 Type 2 diabetes mellitus without complications; E78.5 Hyperlipidemia, unspecified; J44.9 Chronic obstructive pulmonary disease, unspecified; M54.9 Dorsalgia, unspecified; G89.29 Other chronic pain
CPT/HCPCS: 73562; 99283; J1885

== ENCOUNTER 2023-01-04 10:20 | Emergency (ER) | payer MEDICARE ==
[~2023-01-04] VITALS: Ht 180.3 cm; Wt 102.1 kg
[~2023-01-04 10:20] MED LIST changes: +ULTRAM 50MG50 MG PO
[2023-01-04] MEDS ORDERED: ULTRAM 50MG50 MG PO (11:11)
[2023-01-04] MEDS ORDERED: KETOROLAC TROMETHAMINE 60 MG/2 ML VIAL IM ONE (11:15)
== END 2023-01-04 11:30 | disposition home or self-care (01) ==
LOC: ER 10:26
DX: M25.561 Pain in right knee (principal); M25.531 Pain in right wrist; W18.39XD Other fall on same level, subsequent encounter; I10 Essential (primary) hypertension; J44.1 Chronic obstructive pulmonary disease with (acute) exacerbation; E11.9 Type 2 diabetes mellitus without complications; E78.5 Hyperlipidemia, unspecified; M54.9 Dorsalgia, unspecified; G89.29 Other chronic pain
CPT/HCPCS: 99282; J1885

== ENCOUNTER → 2023-01-09 | Outpatient (CLI) | payer MEDICARE | LOC: DX 13:59 → MERGE 14:30 | PROVIDERS: ATTEND Internal Medicine | DX: M85.88 Other specified disorders of bone density and structure, other site (principal) | CPT/HCPCS: 77080 ==

== ENCOUNTER → 2024-11-22 | Outpatient (REF) | payer MEDICARE ==
[~2024-11-22] MED LIST changes: +AMITRIPTYLINE H25 MG PO; +MOUNJARO5 MG/0.5 M SC
== END ==
LOC: RAD 16:37
PROVIDERS: ATTEND Family Medicine Adult Medicine
DX: Z01.818 Encounter for other preprocedural examination (principal)
CPT/HCPCS: 71046

== ENCOUNTER → 2024-11-24 | Outpatient (REF) | payer MEDICARE ==
[~2024-11-24] MED LIST changes: +ASPIRIN81 MG PO; +ROPIVACAINE/EPI/CLONIDINE/KET 50 ML SYRINGE INJ ONE
[2024-11-24 08:22] LABS: BASOPHILS # (AUTO) 0.1 (0.0-0.1); BASOPHILS % 0.8 % (0.0-1.0); EOSINOPHILS # (AUTO) 0.3 (0.0-0.4); EOSINOPHILS % 2.5 % (0.0-6.0); HEMATOCRIT 42.1 % (38.2-49.6); HEMOGLOBIN 14.4 g/dL (14.0-18.0); LYMPHOCYTES # (AUTO) 2.5 (1.0-3.2); LYMPHOCYTES % 25.1 % (18.0-39.1); MEAN CORPUSCULAR HEMOGLOBIN 30.1 pg (28-32); MEAN CORPUSCULAR HGB CONC 34.2 g/dL (31-35); MEAN CORPUSCULAR VOLUME 87.9 fL (81-99); MONOCYTES # (AUTO) 0.6 (0.2-0.8); MONOCYTES % 6.5 % (4.4-11.3); NEUTROPHILS # (AUTO) 6.4 (2.1-6.9); NEUTROPHILS % 64.8 % (38.7-80.0); PLATELET COUNT 267 x10e3/uL (140-360); RED BLOOD COUNT 4.79 x10e6/uL (4.3-5.7); RED CELL DISTRIBUTION WIDTH 11.9 % (11.7-14.4); WHITE BLOOD COUNT 9.81 x10e3/uL (4.8-10.8)
[2024-11-24 08:45] LABS: ANION GAP 14.9 mmol/L (8-16); CALCIUM 8.5 mg/dL (8.4-10.2); CREATININE, SERUM 1.01 mg/dL (0.72-1.25); POTASSIUM 3.9 mmol/L (3.5-5.1)
== END ==
LOC: LAB 08:12 → EDSTATUS 11-30 08:00
PROVIDERS: ATTEND Specialist
DX: Z01.818 Encounter for other preprocedural examination (principal); M17.12 Unilateral primary osteoarthritis, left knee
CPT/HCPCS: 36415; 80048; 85025; 86850; 86900

== ENCOUNTER → 2025-01-10 | Outpatient (REF) | payer MEDICARE ==
[~2025-01-10] MED LIST changes: -ROPIVACAINE/EPI/CLONIDINE/KET 50 ML SYRINGE INJ ONE
== END ==
LOC: RAD 12:36
PROVIDERS: ATTEND Family Medicine Adult Medicine
DX: G89.18 Other acute postprocedural pain (principal); M79.662 Pain in left lower leg
CPT/HCPCS: 93971

== ENCOUNTER 2025-03-07 16:16 | Emergency (ER) | payer MEDICARE ==
[~2025-03-07] VITALS: Ht 180.3 cm; Wt 92.5 kg
[2025-03-07 16:24] VITALS: TEMP 98.4
[2025-03-07] MEDS: KETOROLAC TROMETHAMINE 60 MG/2 ML VIAL IM STA (17:21)
[2025-03-07 18:27] VITALS: PULSE 86; RESP 20
[2025-03-07] MEDS: Morphine 4mg INJECTION 4 MG/ML INJ IM STA (18:28)
[2025-03-07] MEDS ORDERED: CIPRO500 MG PO (19:37)
[2025-03-07] MEDS ORDERED: ACETAMINOPHEN-1 EAC4 PO (19:37)
[2025-03-07] MEDS ORDERED: KETOROLAC TROME10 MG PO (19:37)
[2025-03-07 19:53] VITALS: BP 129/77; PULSE 71; RESP 20; O2SAT 96
== END 2025-03-07 19:55 | disposition home or self-care (01) ==
LOC: FSED 16:24
DX: R10.9 Unspecified abdominal pain (principal); N20.0 Calculus of kidney; N28.1 Cyst of kidney, acquired; I10 Essential (primary) hypertension; E11.9 Type 2 diabetes mellitus without complications; J44.9 Chronic obstructive pulmonary disease, unspecified; E78.5 Hyperlipidemia, unspecified; M54.9 Dorsalgia, unspecified; G89.29 Other chronic pain; G47.30 Sleep apnea, unspecified
CPT/HCPCS: 51702; 74176; 81003; 87086; 87186; 99283; J1885; J2270; 51700

== ENCOUNTER 2025-03-09 11:08 | Outpatient (RCR) | payer MEDICARE ==
[~2025-03-09 11:08] MED LIST changes: +ACETAMINOPHEN-1 EAC4 PO; +KETOROLAC TROME10 MG PO
== END 2025-04-07 ==
LOC: PT 11:08
PROVIDERS: ATTEND Physician Assistant
DX: Z47.1 Aftercare following joint replacement surgery (principal); Z96.652 Presence of left artificial knee joint